=== PATIENT | female | born 1935 | race Caucasian/White ===

== ENCOUNTER 2016-12-04 14:30 | Inpatient (IN) | payer MEDICARE, BC ==
[~2016-12-04] VITALS: Ht 167.6 cm; Wt 106.3 kg
--- NOTE | ~2016-12-04 | CON ---
PATIENT'S NAME: NAT AMEZQUITA [facility] AGE: 80 Y [address] ROOM: [place] [address] LOCATION: GPCU ADMIT DATE: 12/04/2016 Consultation DISCHARGE DATE: FAMILY PHYSICIAN: Lindsay Cali MD ATTENDING PHYSICIAN: TANESHA GARCIA REFERRING PHYSICIAN: Jensen Roth MD REFERRING PHYSICIAN: Tanesha Garcia MD COMMERCIAL DIRECTOR: Dr. Cooley REASON FOR CONSULTATION: Bradycardia. HISTORY OF PRESENT ILLNESS: This is a 80-year-old female, who was admitted for increased weakness. She was found to have profound hypothyroidism, bradycardia, some junctional rhythm, as well as sinus bradycardia. Apparently, she has had an event monitor placed in [place]. PAST MEDICAL HISTORY: 1. Chronic diastolic heart failure. 2. History of colon cancer in 10/2014, post right hemicolectomy with chemotherapy. 3. Anemia. 4. Atrial fibrillation. 5. Hypertension. 6. Chronic kidney disease, stage 3. 7. Intermittent complete heart block per past medical records. 8. Diabetes mellitus, type 2. 9. Gout. 10. Hyperlipidemia. 11. Psoriasis. 12. Arthropathy. 13. Rheumatoid arthritis. 14. Hypothyroidism. 15. Hyperkalemia. PAST SURGICAL HISTORY: 1. Loop recorder placement. 2. Appendectomy. 3. Tonsillectomy. 4. Cholecystectomy. 5. Right hemicolectomy due to colon cancer in 2015. PATIENT'S NAME: NAT AMEZQUITA [facility] AGE: 80 Y [address] ROOM: [place] [address] LOCATION: GPCU ADMIT DATE: 12/04/2016 Consultation DISCHARGE DATE: FAMILY PHYSICIAN: Lindsay Cali MD ATTENDING PHYSICIAN: TANESHA GARCIA 6. Cornea transplant. 7. Bilateral cataract surgery. ALLERGIES: CODEINE, DEMADEX, MEPERIDINE, AND PENICILLIN. CURRENT MEDICATIONS: 1. Allopurinol 300 mg p.o. everyday. 2. Amiodarone 200 mg everyday. 3. Amlodipine 5 mg everyday. 4. Eliquis 2.5 mg b.i.d. 5. Vitamin D3, 5000 units daily. 6. Folic acid 400 mcg daily. 7. Gabapentin 300 mg t.i.d. 8. Glucotrol 10 mg everyday. 9. Hydralazine 25 mg q.i.d. 10. Levemir 20 units subq every night. 11. Levothyroxine 75 mcg daily. 12. Lutein 20 mg daily. 13. Magnesium oxide 400 mg b.i.d. 14. Methotrexate 12.5 mg p.o. everyday. 15. Theravite with beta-carotene one daily. 16. Pravastatin 40 mg one-half tablet every evening. 17. Pred Forte 1% ophthalmic drops q.i.d. 18. Prednisone 1 mg t.i.d. 19. Tramadol 50 mg t.i.d. 20. Vitamin A. 21. PreserVision AREDS one tablet b.i.d. 22. Vitamin B complex one tablet daily. FAMILY HISTORY: Father had heart problems. Sister of cancer in her thirties. Another sister had skin cancer. She has a brother with skin cancer. Another sister with breast cancer in her twenties. REVIEW OF SYSTEMS: HEAD: No history of headaches. EYES: She has impaired vision and wears glasses. EARS: No problems with hearing. NOSE: No epistaxis or rhinorrhea. MOUTH: No gingival bleeding. THROAT: She denies sore throat, hoarseness, or difficulty swallowing. PULMONARY: She denies complaints of shortness of breath. No history of PE. CARDIOVASCULAR: Per HPI. She does carry a history of atrial fibrillation, intermittent complete heart block, and palpitations. PATIENT'S NAME: NAT AMEZQUITA [facility] AGE: 80 Y [address] ROOM: [address] [place] [id number] [facility] ADMIT DATE: 12/04/2016 Consultation DISCHARGE DATE: FAMILY PHYSICIAN: Lindsay Cali MD ATTENDING PHYSICIAN: TANESHA GARCIA GASTROINTESTINAL: Negative for nausea, vomiting, or diarrhea. GENITOURINARY: She has problems with chronic renal insufficiency, and currently has hyperkalemia with history of anemia. MUSCULOSKELETAL: She has rheumatoid arthritis, gout, and spinal stenosis. ENDOCRINE: She has a history of hypothyroidism as well as diabetes mellitus, type 2. PSYCHIATRIC: No dementia was noted. PHYSICAL EXAMINATION: GENERAL: She is alert and oriented. SKIN: Warm, dry, and pink. EYES: Pupils are equal, round, and react briskly. NECK: Soft and supple. No lymphadenopathy. No thyromegaly. JVD is flat. PULMONARY: Lung sounds were clear. CARDIOVASCULAR: Regular, but bradycardic with a normal S1 and S2. ABDOMEN: Soft. Bowel sounds are present. EXTREMITIES: Currently show no peripheral edema. No clubbing and no cyanosis. VITAL SIGNS: Her height is 5 feet 6 inches. She weighs 255 pounds. Blood pressure is 148/89 and heart rate now is 50. LABORATORY DATA: On 12/04/2016, hemoglobin was 10.7 and white count was 8.3. BUN was 87, creatinine was 2.9, and her potassium was 7.1 with a sodium of 123. Today, on 12/05/2016, sodium is 133, potassium is 4.9, BUN is 76, and creatinine is 2.2. Hemoglobin A1c of 8.4. Free T4 of 0.7. Cardiac enzymes were normal. Procalcitonin was 0.41. ASSESSMENT AND PLAN: 1. Bradycardia. Currently, showing a sinus bradycardia. We are going to have her loop recorder interrogated, and further recommendations will be forthcoming regarding pacemaker. 2. Hyperkalemia. Her potassium has come down with Lasix. We will continue to monitor for now. 3. Hypothyroid. She will continue with the Synthroid replacement therapy. 4. Hypertension. Blood pressures look pretty good. We will continue current medications. 5. Dyslipidemia. She is on Pravachol. She will continue with her current dose of meds. 6. Diabetes mellitus. This is per hospitalist. 7. Acute on chronic kidney disease with hyperkalemia. Nephrology is on board. We will continue to monitor. The assessment and plan, history of present illness, and physical exam are per Dr. Roth. We would like to thank Dr. Garcia for allowing us to participate in the patient's care. PATIENT'S NAME: NAT AMEZQUITA [facility] AGE: 80 Y [address] ROOM: [address] [place], [place] [address] LOCATION: GPCU ADMIT DATE: 12/04/2016 Consultation DISCHARGE DATE: FAMILY PHYSICIAN: Lindsay Cali MD ATTENDING PHYSICIAN: TANESHA GARCIA PADDY RUIZ MD TGP/modl /[id number] d: 12/06/16 0142 t: 12/21/16 1159, CONSULTATION REPORT
--- NOTE | ~2016-12-04 | HP ---
PATIENT'S NAME: NAT AMEZQUITA [facility] AGE: 80 Y [address] ROOM: [place] [address] LOCATION: GPCU ADMIT DATE: 12/04/2016 History & Physical DISCHARGE DATE: FAMILY PHYSICIAN: PHYSICIAN, UNKNOWN ATTENDING PHYSICIAN: TANESHA RUDOLPH DATE OF SERVICE: CHIEF COMPLAINT: Not feeling well, weakness in the legs. HISTORY OF PRESENT ILLNESS: A 80-year-old lady with a past medical history of chronic kidney disease stage 3 secondary to insulin-dependent diabetes mellitus, diastolic heart failure, rheumatoid arthritis on chronic prednisone therapy presented to the local emergency department with weakness and tremors in the lower legs which had been there for about 24 to 48 hours, new in onset, progressive in nature. No alleviating or aggravating factors associated with some fatigue and tiredness overall. She did endorse having some shortness of breath, but not more than her usual baseline. Denied any chest pain, any palpitation, any abdominal pain, any constipation, any diarrhea, any burning on urination, or any dizziness. On further inquiry, she did not have these symptoms about 1 week ago. REVIEW OF SYSTEMS: All other systems were reviewed and were negative except what is mentioned in the HPI. PAST MEDICAL HISTORY: 1. Congestive heart failure, diastolic in nature. 2. Essential hypertension. 3. Insulin-dependent diabetes mellitus. 4. History of colon cancer status post resection and chemotherapy in remission. 5. Atrial fibrillation with slow ventricular rate. 6. Hypothyroidism. 7. Anemia of chronic disease. 8. Rheumatoid arthritis. 9. Gout. MEDICATIONS: Being reconciled right now. ALLERGIES: PENICILLIN, CODEINE, TORSEMIDE, AND LATEX. PATIENT'S NAME: NAT AMEZQUITA [facility] AGE: 80 Y [address] ROOM: [place] [address] LOCATION: GPCU ADMIT DATE: 12/04/2016 History & Physical DISCHARGE DATE: FAMILY PHYSICIAN: PHYSICIAN, UNKNOWN ATTENDING PHYSICIAN: TANESHA RUDOLPH SOCIAL HISTORY: Never a smoker. No alcohol or drug abuse. FAMILY HISTORY: Positive for coronary artery disease in older brother and dad. PHYSICAL EXAMINATION: VITAL SIGNS: 148/58, 53, 16, afebrile, saturating 95% on room air. GENERAL: In no acute distress. Alert and oriented x3. HEENT: Head: Atraumatic, normocephalic. Eyes: Nonicteric. No pallor. Oropharynx moist mucous membranes. CARDIOVASCULAR: Irregular variable S1, normal S2. Systolic ejection murmur at the aortic region. LUNGS: Decreased air entry bilaterally at the bases. Mild crepitations heard. ABDOMEN: Soft, nontender, nondistended. Bowel sounds are present. EXTREMITIES: +1 extremity edema. No clubbing, cyanosis. MUSCULOSKELETAL: No muscle tenderness or joint swelling noted. SKIN: Appears to be dry. No blemishes noted. NEUROLOGIC: Cranial nerves II through XII intact. No motor or sensory deficit noted. LYMPHATICS: No lymphangitis or lymphadenopathy noted. PSYCH: Normal affect, mood, and speech. DIAGNOSTIC DATA: Lab work from the outside facility showed sodium of 123, potassium of 7.1, chloride 91, bicarb 24, BUN 87, creatinine 2.9, calcium 9.7, glucose 170. TSH was 40. Serum osmolality 278. Hemoglobin 10, white count 8. BNP 3653. UA was positive with 6 to 10 wbc cast. EKG done at outside facility showed atrial fibrillation with slow ventricular rates in the 50s, possibly right bundle-branch block or aberrant conduction. ASSESSMENT: 1. Severe hyperkalemia. 2. Acute kidney injury on chronic kidney disease stage 3. 3. Acute heart failure with preserved ejection fraction. 4. Atrial fibrillation with slow ventricular response rate. 5. Insulin-dependent diabetes mellitus. 6. Hypothyroidism. 7. Rheumatoid arthritis. 8. Colon cancer. 9. Hyponatremia. 10. Intermittent cardiac block. PATIENT'S NAME: NAT AMEZQUITA [facility] AGE: 80 Y [address] ROOM: [address] [place], [place] [address] [facility] AD[facility] DATE: 12/04/2016 History & Physical DISCHARGE DATE: FAMILY PHYSICIAN: PHYSICIAN, UNKNOWN ATTENDING PHYSICIAN: TANESHA RUDOLPH PLAN: We are going to admit this patient to PCU tele monitor, will be observed. On arrival to the hospital, an EKG was repeated because of the hyperkalemia. Did show again atrial fibrillation with slow ventricular rate and left bundle- branch block which was present on the previous EKG from her [facility] office dated March 2016. The patient was in sinus rhythm at that time. The patient had already been given 10 units of insulin, 2 amps of D50 glucose, 40 mg of IV Lasix. The whole clinical picture appears that she is having ARIANNA secondary to the cardiorenal syndrome. 40 mg of Lasix has been given and we will monitor I and O. At this point, the repeat serum potassium is 5.8 with no EKG changes. Creatinine ranges still at 2.9. At this point, I will obtain a Nephrology consultation to manage the ARIANNA. Its difficult to assess the volume status at this time. We will continue to monitor her heart rate and rhythm. She is wearing a loop monitor and she is supposed to undergo a pacemaker placement by her lan/wan engineer. We will hold Eliquis for now. Put her on DVT doses of heparin. We will use detemir 10 units b.i.d. and a sliding scale insulin. Continue home dose of levothyroxine which have recently started. Continue prednisone. Monitor sodium which appears to be hypervolemic hyponatremia. Further management plan and Cardiology consultation will be made depending on her progress in the hospital. MD BRADY MONTEJO/samuel /[id number] D: [id number] T: [id number] HISTORY & PHYSICAL
--- NOTE | ~2016-12-04 | CON ---
PATIENT'S NAME: NAT AMEZQUITA [facility] AGE: 81 Y [address] ROOM: [address] [address] LOCATION: GPCU ADMIT DATE: 12/04/2016 Consultation DISCHARGE DATE: FAMILY PHYSICIAN: Lindsay Cali MD ATTENDING PHYSICIAN: TANESHA RUDOLPH DATE OF CONSULTATION: 12/04/2016 REFERRING PHYSICIAN: Jensen Roth MD This is a [facility] Nephrology consultation. REASON FOR CONSULTATION: Acute kidney injury, hyperkalemia. HISTORY OF PRESENT ILLNESS: This is a 80-year-old female patient with a longstanding history of hypertension over the past 20 years, diabetes mellitus x10 years, hypothyroidism, atrial fibrillation, history of left bundle branch block, intermittent complete heart block, now with loop recorder, apparently with a history of CKD stage 3, presented to outpatient clinic with profound weakness. The patient was found to have a potassium 7.1. The patient was admitted on 11/21/2015 to [place]. At that time, she was found to have acute kidney injury on chronic kidney disease with creatinine up to 3.6. At that time, the patient's diuretic and ARB were stopped. Today, the patient presents with a creatinine of 2.9 with a potassium of 5.8, after being treated with hyperkalemia protocol including regular insulin, D50, calcium gluconate x2, and Kayexalate. At her last hospitalization, her TSH was found to be over 40. Initial replacement therapy was started at 50 mcg daily. She was recently increased to 75 mcg by her primary care provider. The patient continues to have profound hypothyroidism and at the time of exam shows bradycardia with some junctional rhythm. There is a loop recorder placed and this is being followed by Dr. Cooley in [place]. Due to the patient's history of acute kidney injury on chronic kidney disease stage 3 with creatinine of up to 3.6, Nephrology has been asked to consult on the patient and monitor her kidney function while she is hospitalized. PAST MEDICAL HISTORY: As listed above including, 1. Chronic diastolic heart failure. 2. History of colon cancer in October of 2014, status post right hemicolectomy with chemotherapy. 3. Anemia of chronic disease. 4. Insulin-dependent diabetes. 5. Essential hypertension. 6. Atrial fibrillation, on amiodarone outpatient. 7. Hypothyroidism. 8. Rheumatoid arthritis. 9. High-risk medications in the form of methotrexate. 10. Gout. ALLERGIES: PENICILLIN, CODEINE, TORSEMIDE, AND LATEX.PATIENT'S NAME: NAT AMEZQUITA [facility] AGE: 81 Y [address] ROOM: [place] [address] LOCATION: [facility] ADMIT DATE: 12/04/2016 Consultation DISCHARGE DATE: FAMILY PHYSICIAN: Lindsay Cali MD ATTENDING PHYSICIAN: TANESHA RUDOLPH CURRENT HOME MEDICATIONS: Include, 1. Allopurinol 300 mg daily. 2. Amiodarone 200 mg daily. 3. Amlodipine 5 mg daily. 4. Eliquis 2.5 mg twice a day. 5. Vitamin D3 5000 units daily. 6. Folic acid 400 mcg daily. 7. Gabapentin 300 mg t.i.d. 8. Glucotrol 10 mg daily. 9. Hydralazine 25 mg 4 times a day. 10. Levemir 20 units daily. 11. Levothyroxine 25 mcg daily. 12. Lutein 20 mg daily. 13. Magnesium oxide 400 mg twice a day. 14. Methotrexate 12.5 mg twice a day. 15. Theravite with wide beta-carotene one tablet daily. 16. Pravastatin 40 mg 1/2 tablet every evening. 17. Pred Forte 1% ophthalmic drops four times a day. 18. Prednisone 1 mg t.i.d. 19. Tramadol 50 mg t.i.d. 20. Vitamin A 1 tablet daily. 21. PreserVision AREDS one tablet twice a day. 22. Vitamin B complex one tablet daily. PAST SURGICAL HISTORY: 1. As listed above loop recorder placement. 2. Appendectomy. 3. Tonsillectomy. 4. Cholecystectomy. 5. Right hemicolectomy due to colon cancer 2016. 6. Cornea transplant. 7. Bilateral cataract surgery. FAMILY HISTORY: Reviewed and is noncontributory. There is no history of renal disease or dialysis. The patient's father did have a history of coronary artery disease and her sister had a history of cancer. She did also have a brother and another sister with cancer. PATIENT'S NAME: NAT AMEZQUITA [facility] AGE: 81 Y [address] ROOM: [address] [place], [place] [address] LOCATION: GPCU ADMIT DATE: 12/04/2016 Consultation DISCHARGE DATE: FAMILY PHYSICIAN: Lindsay Cali MD ATTENDING PHYSICIAN: TANESHA RUDOLPH REVIEW OF SYSTEMS: GENERAL: Positive for fatigue. EYES: No double vision blurred vision. NOSE: No epistaxis or rhinorrhea. MOUTH: No gingival bleeding. THROAT: No sore throat, hoarseness, or cough. RESPIRATORY: Denies wheezing or hemoptysis. CARDIOVASCULAR: Denies any chest pain or palpitations. See HPI. GASTROINTESTINAL: Positive for nausea. Denies any vomiting. Denies any diarrhea. GENITOURINARY: Denies any frequency, hesitancy, or urgency. MUSCULOSKELETAL: Denies any new arthralgias or myalgias. ENDOCRINE: She does have a history of hypothyroidism as well as diabetes type 2, on insulin. PSYCHIATRIC: Denies any depression or anxiety. HEMATOLOGICAL: Denies any bruising or easy bleeding. LABORATORY DATA: Hemoglobin 10.7, WBCs 8.3, BUN 87, creatinine 2.9, potassium 7.1, sodium 123. These labs were obtained prior to arrival. Today's labs are currently pending. PHYSICAL EXAM: VITAL SIGNS: Blood pressure is 148/89, heart rate 47, respirations 14, temp is 98.7, and saturations are 92% on 2 L nasal cannula. GENERAL: On exam, this is an alert and oriented, white elderly female who appears her approximate stated age. HEENT: Her head is normocephalic and atraumatic. Eyes, pupils are equal and accommodation. EOMs intact. Nose midline. Mouth, no gingival bleeding. NECK: Soft and supple. Throat is without lymphadenopathy, carotid bruits, or JVD. LUNGS: Lung sounds are clear to auscultation anteriorly and posteriorly. CARDIOVASCULAR: Bradycardic rate with an apical heart rate of 43 beats per minute. Unable to appreciate any murmurs, rubs, or thrills. ABDOMEN: Soft, nontender, and nondistended. Bowel sounds positive. EXTREMITIES: No signs of peripheral edema, clubbing, or cyanosis. ASSESSMENT AND PLAN: 1. Acute kidney injury on chronic kidney disease stage 3. The patient's apparent chronic kidney disease was a combination of hypertension and chemotherapy as well as diabetes. Acute kidney injury likely secondary to acute tubular necrosis a couple of weeks ago. Creatinine was up to 3.6 and now is 2.9. The patient does not appear volume overloaded or depleted. We will hold her diuretic for now and continue to withhold all offending nephrotoxic agents. We will check a urinalysis for electrolytes and a renal ultrasound to further rule out obstruction.PATIENT'S NAME: NAT AMEZQUITA [facility] AGE: 81 Y [address] ROOM: [address] [place], [place] [address] LOCATION: GPCU ADMIT DATE: 12/04/2016 Consultation DISCHARGE DATE: FAMILY PHYSICIAN: Lindsay Cali MD ATTENDING PHYSICIAN: TANESHA RUDOLPH 2. Hyperkalemia. We will initiate Veltassa therapy at 16.8 g p.o. daily. The patient did receive hyperkalemia protocol prior to her arrival. We will continue to monitor this and if her potassium persists greater than 5.5, we will repeat Kayexalate, insulin, dextrose and calcium gluconate. 3. Bradycardia, Dr. Roth has been consulted. Further recommendations per Dr. Roth. 4. Hypothyroidism. The patient is to continue her replacement therapy at this time. Further per primary team. This patient has been seen and assessed by Dr. Chapman. Her care is being conducted in consultation Dr. Chapman as well as me. We will plan further recommendations as they are forthcoming. PHILIP CLEMENTE DNP, [facility] [facility] RUBEN CHAPMAN MD ENS/modl /[id number] d: 12/06/16 1531 t: 12/16/16 0931, CONSULTATION REPORT
--- NOTE | ~2016-12-04 | DS ---
PATIENT'S NAME: NAT AMEZQUITA [facility] AGE: 81 Y [address] ROOM: [address] [address] LOCATION: GPCU ADMIT DATE: 12/04/2016 Discharge Summary DISCHARGE DATE: 12/07/2016 FAMILY PHYSICIAN: Lindsay Cali MD ATTENDING PHYSICIAN: Alexia Garcia FINAL DIAGNOSES: 1. Severe hyperkalemia. 2. Acute kidney injury on stage 3 chronic kidney disease. 3. Acute diastolic congestive heart failure. 4. Atrial fibrillation with slow ventricular response. 5. Insulin-dependent diabetes mellitus. 6. Hypothyroidism. HISTORY OF PRESENT ILLNESS: Please see the history and physical dictated by Dr. Garcia for details of admission. In short, the patient with histories of chronic kidney disease, insulin- dependent diabetes mellitus, and diastolic heart failure, had presented to her local Emergency Room because she was having tremors in her legs and had felt weak. She also has overwhelming fatigue, as well as shortness of breath. When she presented there, she was found to have a potassium value of 7.1, BUN of 87, and creatinine of 0.29. She has been just discharged from the [facility] for a similar presentation. LABORATORY DATA: On admission, sodium was 131 and on discharge was 135. Potassium on admission was 7.1, by the time she got here it was down to 5.8, later on the admission day was up to 6.5, and then gradually came down and on the day of discharge it was 4.4. BUN on admission was 85 and at discharge was 42. Creatinine on admission was 2.9 and at discharge was 1.6. Hemoglobin A1c was 8.4. Free T4 of 0.7. Her white blood cell count on admission was 7 with a hemoglobin of 10, hematocrit of 30.1, platelet count of 198, and MCV of 104.2. Procalcitonin on admission was 0.41. Urinalysis on admission had 20 to 50 whites and had many bacteria. Urine culture was obtained, which did grow E. coli. The patient was asymptomatic. DIAGNOSTIC STUDIES: An ultrasound of the kidney done on admission to rule out an obstruction showed that the right kidney was 10.2 cm and left kidney was 11.1 cm. She did have a 5 cm right kidney cyst. HOSPITAL COURSE: The patient was admitted to the Progressive Care Unit and placed on Telemetry. She was given one dose of Rocephin for concern of potential infection. Urine electrolytes were obtained, as well as osmolality. Nephrology was consulted. The patient was seen and given a dose of calcium gluconate. The patient was noted to be bradycardic, and Cardiology was asked PATIENT'S NAME: NAT AMEZQUITA [facility] AGE: 81 Y [address] ROOM: [place] [address] LOCATION: GPCU ADMIT DATE: 12/04/2016 Discharge Summary DISCHARGE DATE: 12/07/2016 FAMILY PHYSICIAN: Lindsay Cali MD ATTENDING PHYSICIAN: Alexia Garcia to see. Nephrology did feel that the patient should be started on Veltassa. Her Neurontin was held during the hospital stay because of the acute renal insufficiency. Dr. Roth did see her in Cardiology consultation. There was concern that she may need a pacemaker placement. She did have an implanted loop recorder, this was interrogated. Her potassiums did continue to decline. She was given IV fluid with Lasix. Her echocardiogram was reviewed. As the potassium returned to normal level, her heart rate improved. Her TSH at an outside facility was elevated. Her free T4 was at the low end of normal here, so her Synthroid dose was increased. She did continue to feel better. PT and OT were asked to see her. Her blood pressures were elevated, so Norvasc was increased. I did contact her primary avionics repair technician's office to determine kidney function levels, potassium levels, and what medication adjustments had been made as an outpatient. Her urine culture did return positive; however, she did not have any symptomatology, so it was felt that it did not need to be addressed. Nephrology did make multiple adjustments in her blood pressure medicines. DISCHARGE MEDICATIONS: 1. Allopurinol 300 mg daily. 2. Norvasc 5 mg twice daily. 3. Amiodarone 200 mg daily. 4. Vitamin D 5000 units daily. 5. Lutein 20 mg daily. 6. Folic acid 400 mcg daily. 7. Levemir 20 units at bedtime. 8. Magnesium oxide 400 mg once daily, which was a decrease. 9. Synthroid 100 mcg daily, this was an increase. 10. Pravachol 20 mg at bedtime. 11. Pred-Forte one drop 4 times daily to left eye. 12. Deltasone 1 mg three times daily. 13. Ultram 50 mg three times daily. 14. Eliquis 2.5 mg twice daily. 15. Neurontin 300 mg three times daily. 16. Glucotrol 10 mg daily. 17. Methotrexate 12.5 mg every seven days, which is due on Sunday. 18. PreserVision one tablet daily. 19. B complex vitamin daily. 20. Hydralazine 25 mg three times daily. 21. Veltassa 8.4 g two packets daily. 22. Chlorthalidone 25 mg daily. DISCHARGE INSTRUCTIONS AND PLAN: It was recommended that she follow up to get her laboratory drawn in 1 week. She did voice that she might like to have it checked sooner, so I told her to call Dr. Cali's office to see if they could be checked on Sunday. PATIENT'S NAME: NAT AMEZQUITA [facility] AGE: 81 Y [address] ROOM: [place] [address] [facility] ADMIT DATE: 12/04/2016 Discharge Summary DISCHARGE DATE: 12/07/2016 FAMILY PHYSICIAN: Lindsay Cali MD ATTENDING PHYSICIAN: Alexia Garcia OVERALL PROGNOSIS AT DISCHARGE: Fair. LISHA STRAUSS MD LAW/modl /[id number] CC: MD Lindsay Rader MD Ramez Habash, MD d: 12/07/16 2240 t: 12/13/16 1115, DISCHARGE SUMMARY
[2016-12-04] MEDS ORDERED: CORDARONE,PACE200 MG PO (15:59)
[2016-12-04] MEDS ORDERED: ZYLOPRIM300 MG PO (15:59)
[2016-12-04] MEDS ORDERED: NORVASC5 MG PO (16:00)
[2016-12-04] MEDS ORDERED: FOLIC ACID 40400 MCG PO (16:01)
[2016-12-04] MEDS ORDERED: ELIQUIS2.5 MG PO (16:01)
[2016-12-04] MEDS ORDERED: GLUCOTROL10 MG PO (16:02)
[2016-12-04] MEDS ORDERED: NEURONTIN300 MG PO (16:02)
[2016-12-04] MEDS ORDERED: APRESOLINE50 MG PO (16:06)
[2016-12-04] MEDS ORDERED: LEVEMIR100 UNIT/1 SUB-Q (16:06)
[2016-12-04] MEDS ORDERED: MAG-OX-400(241400 MG PO (16:11)
[2016-12-04] MEDS ORDERED: NATURAL LUTEIN20 MG PO (16:11)
[2016-12-04] MEDS ORDERED: THERA-VITE W/ B1 TAB PO (16:13)
[2016-12-04] MEDS ORDERED: METHOTREXATE2.5 MG PO (16:13)
[2016-12-04] MEDS ORDERED: PRAVACHOL40 MG PO (16:14)
[2016-12-04] MEDS ORDERED: DELTASONE1 MG PO (16:15)
[2016-12-04] MEDS ORDERED: PRED FORTE 1%5 ML OPHTH (16:15)
[2016-12-04] MEDS ORDERED: PRESERVISION A1 EAC1 PO (16:16)
[2016-12-04] MEDS ORDERED: SUPER B COMPLE150 MG PO (16:17)
[2016-12-04] MEDS ORDERED: LEVOTHROID (S100 MCG PO (16:18)
[2016-12-04] MEDS ORDERED: VITAMIN D35000 UNI1 PO (16:19)
[2016-12-04] MEDS ORDERED: ULTRAM50 MG PO (16:19)
--- NOTE | 2016-12-04 16:21 | NUR ---
Pt is 80 y/o female admit for acute kidney injury for hospitalist. Has many allergies-see chart. Resides at home with her . Pt came via flight from [facility]. Hx CHF,htn,afib,colon CA,hyperlipids,RA,gout,cornea trans, psoriasis,spinal stenosis,hypothyroid,renal insuff,hx anemia. Pt alert and oriented x3. Pt has a loop recorder and was scheduled to have a pacemaker next week with [place]. Yesterday her legs felt like rubber and she had some body twitching. She overall didn't feel good. Her took her to the
[2016-12-04 16:26] LABS: BASOPHIL % 0.3 %; EOSINOPHIL % 0.4 %; HEMATOCRIT 30.1 % (33.0-46.0); IMMATURE GRANULOCYTE % 0.4 %; LYMPHOCYTE % 14.1 %; MCH 34.6 pg (27.0-34.0); MCHC 33.2 gm/dL (32.0-36.5); MCV 104.2 fl (83.0-98.0); MONOCYTE # 0.3 K/uL (0.0-1.0); MONOCYTE % 4.1 %; MPV 10.6 fl (9.4-12.4); NEUTROPHIL # (ANC) 5.7 K/uL (1.8-7.8); NEUTROPHIL % 80.7 %; NRBC % 0 /100WBC (0-0.00); PLATELET COUNT 198 K/uL (150-450); RBC 2.89 M/uL (3.50-5.50); RDW-CV 15.1 % (11.9-14.6)
[2016-12-04 16:38] LABS: CALCIUM 9.7 mg/dL (8.5-10.5); CREATININE 2.9 mg/dL (0.5-1.1)
[2016-12-04 16:39] LABS: ANION GAP 14.8 (10.0-19.0); POTASSIUM 5.8 mMol/L (3.7-5.1)
[2016-12-04 19:08] LABS: BASOPHIL % 0.3 %; EOSINOPHIL # 0.1 K/uL (0.0-0.5); EOSINOPHIL % 0.6 %; HEMATOCRIT 30.6 % (33.0-46.0); HEMOGLOBIN 10.1 g/dL (10.0-15.0); IMMATURE GRANULOCYTE % 0.4 %; LYMPHOCYTE # 0.9 K/uL (0.8-4.0); LYMPHOCYTE % 9.6 %; MCH 34.6 pg (27.0-34.0); MCV 104.8 fl (83.0-98.0); MONOCYTE # 1.1 K/uL (0.0-1.0); MPV 10.3 fl (9.4-12.4); NEUTROPHIL # (ANC) 7.3 K/uL (1.8-7.8); NEUTROPHIL % 77.1 %; NRBC % 0 /100WBC (0-0.00); PLATELET COUNT 216 K/uL (150-450); RBC 2.92 M/uL (3.50-5.50); RDW-CV 15.1 % (11.9-14.6); WBC 9.4 K/uL (4.0-11.0)
[2016-12-04 19:21] LABS: CALCIUM 9.2 mg/dL (8.5-10.5); CREATININE 2.8 mg/dL (0.5-1.1)
[2016-12-04 21:34] LABS: BILIRUBIN URINE NEGATIVE (NEGATIVE); BLOOD URINE 25 /UL (NEGATIVE); COLOR URINE YELLOW (YELLOW); GLUCOSE URINE NEGATIVE (NEGATIVE); KETONE URINE NEGATIVE (NEGATIVE); LEUKOCYTES URINE 500 /UL (NEGATIVE); NITRITE URINE NEGATIVE (NEGATIVE); PROTEIN URINE NEGATIVE (NEGATIVE); TURBIDITY URINE CLEAR (CLEAR); UROBILINOGEN URINE NORMAL (NORMAL)
[2016-12-04 21:44] LABS: BACTERIA URINE MANY (NEGATIVE); WBC URINE 20-50 #/HPF (NEGATIVE)
[2016-12-04 21:45] LABS: WBC CLUMPS URINE FEW (NEGATIVE)
[2016-12-04 23:23] LABS: CALCIUM 8.9 mg/dL (8.5-10.5); CREATININE 2.7 mg/dL (0.5-1.1)
[2016-12-04 23:27] LABS: ANION GAP 15.5 (10.0-19.0); POTASSIUM 6.5 mMol/L (3.7-5.1)
--- NOTE | 2016-12-05 04:06 | NUR ---
Significant Event: A/0X3. RESTED IN BED ALL OF SHIFT. TURNS SELF. 1 ASSIST TO BEDSIDE COMMODE. AFEBRILE. HR LOW 40'S- 50'S. VSS ON 2L. DENIES PAIN. L) CHEST PORT SL. FLUSHES WITH GOOD BLOOD RETURN. K LEVEL WAS 5.8 AT BEGINNING OF SHIFT. GAVE 2 GRAMS OF CALCIUM GLUCONATE X1 AND VELTASSA.RECHECK AT 2300 K LEVEL WAS 6.5 GAVE KAYEXELATE X1 1 GRAM OF CALCIUM GLUCONATE X1 10 UNITS OF REGULAR INSULIN IV AND 1 AMPULE OF D50. WAITING ON RESULTS OF THE RECHECK. BEEN NPO SINCE MIDNIGHT FOR POSSIBLE PACER THIS AM. MONSE PRESENT WITH 1600 MLS OUT. SMALL BM THIS SHIFT. RENAL ULTRASOUND THIS AM. Follow up: CONTINUE WITH PLAN OF CARE.
[2016-12-05 04:22] LABS: CALCIUM 9.2 mg/dL (8.5-10.5); CREATININE 2.5 mg/dL (0.5-1.1)
[2016-12-05 04:25] LABS: ANION GAP 14.5 (10.0-19.0); POTASSIUM 5.5 mMol/L (3.7-5.1)
[2016-12-05 04:38] LABS: BASOPHIL % 0.2 %; EOSINOPHIL # 0.1 K/uL (0.0-0.5); EOSINOPHIL % 1.9 %; HEMATOCRIT 26.6 % (33.0-46.0); HEMOGLOBIN 8.9 g/dL (10.0-15.0); IMMATURE GRANULOCYTE % 0.3 %; LYMPHOCYTE # 1.3 K/uL (0.8-4.0); LYMPHOCYTE % 21.7 %; MCH 34.8 pg (27.0-34.0); MCHC 33.5 gm/dL (32.0-36.5); MCV 103.9 fl (83.0-98.0); MONOCYTE # 0.6 K/uL (0.0-1.0); MONOCYTE % 10.3 %; NEUTROPHIL # (ANC) 3.9 K/uL (1.8-7.8); NEUTROPHIL % 65.6 %; NRBC % 0 /100WBC (0-0.00); PLATELET COUNT 180 K/uL (150-450); RBC 2.56 M/uL (3.50-5.50); RDW-CV 15.1 % (11.9-14.6); WBC 5.9 K/uL (4.0-11.0)
[2016-12-05 09:47] LABS: CALCIUM 9.4 mg/dL (8.5-10.5); CREATININE 2.2 mg/dL (0.5-1.1)
[2016-12-05 09:48] LABS: ANION GAP 13.9 (10.0-19.0); POTASSIUM 4.9 mEq/L (3.7-5.1)
[2016-12-06 03:46] LABS: POTASSIUM 4.6 mEq/L (3.7-5.1)
[2016-12-06 04:25] LABS: ALBUMIN 3.1 gm/dL (3.5-5.0); ANION GAP 16.6 (10.0-19.0); CALCIUM 9.6 mg/dL (8.5-10.5); CREATININE 1.9 mg/dL (0.5-1.1); PHOSPHORUS 3.9 mg/dL (2.5-4.9)
--- NOTE | 2016-12-06 04:50 | NUR ---
Significant Event: A/0X3. RESTED IN BED ALL OF SHIFT. TURNS SELF. AFEBRILE. VSS ON RA. L) CHEST PORT WITH NS @ 60 MLS/H. ULTRAM GIVEN X1. LAST DOSE WAS AT 2017 FOR LEG PAIN. PATIENT WAS ABLE TO FIND RELIEF AND REST COMFORTABLY WITH NO C/O OF PAIN THE REST OF THE NIGHT. SHEA HAD 1750 MLS OUT. NO BM THIS SHIFT. Follow up: CONTINUE WITH PLAN OF CARE.
--- NOTE | 2016-12-06 11:08 | NUR ---
Introduced self and care management services to patient and spouse at bedside. Lives in [place]. Plans on going home on discharge, hoping to go home soon. Denies concerns about going home, denies needs, spouse will assist pt at home as needed. Will follow.
--- NOTE | 2016-12-06 17:20 | NUR ---
Significant Event: A/O. SBPs 150s-180s. Pain to aura knees and feet, ultram given with relief noted. Flores dc'd at 1500, has voided 100 ml. Urine cx + ecoli, patient asymptomatic so no ABX ordered. Cdiff sample sent. Up with SBA and walker to BR. AC/HS accuchecks. Fluid restriction of 1200ml. Follow up:
--- NOTE | 2016-12-07 04:38 | NUR ---
A/O. HR 60-80s. SBP 120-200s HYDRALIZE AND LABATOLOL PO STARTED. ROOM AIR. AFEBRILE. VOIDS WELL. 1A WALKER TO BATHROOM. ULTRAMx1.
[2016-12-07 06:20] LABS: BASOPHIL % 0.4 %; EOSINOPHIL # 0.2 K/uL (0.0-0.5); EOSINOPHIL % 2.1 %; HEMATOCRIT 30.6 % (33.0-46.0); IMMATURE GRANULOCYTE % 0.6 %; LYMPHOCYTE # 1.2 K/uL (0.8-4.0); LYMPHOCYTE % 17.1 %; MCH 33.9 pg (27.0-34.0); MCHC 32.7 gm/dL (32.0-36.5); MCV 103.7 fl (83.0-98.0); MONOCYTE # 0.4 K/uL (0.0-1.0); MONOCYTE % 6.1 %; MPV 10.1 fl (9.4-12.4); NEUTROPHIL # (ANC) 5.2 K/uL (1.8-7.8); NEUTROPHIL % 73.7 %; NRBC % 0 /100WBC (0-0.00); RBC 2.95 M/uL (3.50-5.50); RDW-CV 15.3 % (11.9-14.6); WBC 7.1 K/uL (4.0-11.0)
[2016-12-07 06:26] LABS: PLATELET COUNT 230 K/uL (150-450)
[2016-12-07 06:39] LABS: ALBUMIN 3.5 gm/dL (3.5-5.0); ANION GAP 12.4 (10.0-19.0); CALCIUM 9.4 mg/dL (8.5-10.5); CREATININE 1.6 mg/dL (0.5-1.1); MAGNESIUM 2.2 mg/dL (1.8-2.6); PHOSPHORUS 3.5 mg/dL (2.5-4.9); POTASSIUM 4.4 mEq/L (3.7-5.1)
[2016-12-07] MEDS ORDERED: APRESOLINE25 MG PO (13:45)
[2016-12-07] MEDS ORDERED: VELTASSA16.8 GM PO (13:47)
[2016-12-07] MEDS ORDERED: CHLORTHALIDONE25 MG PO (16:09)
--- NOTE | 2016-12-07 17:51 | NUR ---
PT. DISCHARGE INSTRUCTIONS GIVEN AND VERBALIZED UNDERSTANDING OF BY PT AND . CALLED THEIR PHARMACY TO VERIFY SOME NEW MED AVAILABILITIES. CHEST PORT DEACCESSED. DISCHARGED PER WHEELCHAIR BY AIDE TO FRONT DOOR WITH .
== END 2016-12-07 16:57 | disposition disaster alternative care site (69) | DRG 682 ==
LOC: GPCU 15:49
PROVIDERS: Internal Medicine; Nurse Practitioner; Physician Assistant; ADMIT Internal Medicine
DX: N17.9 Acute kidney failure, unspecified (principal); I50.33 Acute on chronic diastolic (congestive) heart failure; E11.22 Type 2 diabetes mellitus with diabetic chronic kidney disease; E11.649 Type 2 diabetes mellitus with hypoglycemia without coma; E87.1 Hypo-osmolality and hyponatremia; I13.0 Hypertensive heart and chronic kidney disease with heart failure and stage 1 through stage 4 chronic kidney disease, or unspecified chronic kidney disease; Z68.41 Body mass index [BMI] 40.0-44.9, adult; D63.8 Anemia in other chronic diseases classified elsewhere; E03.9 Hypothyroidism, unspecified; E66.01 Morbid (severe) obesity due to excess calories; I45.9 Conduction disorder, unspecified; M06.9 Rheumatoid arthritis, unspecified; I48.91 Unspecified atrial fibrillation; M10.9 Gout, unspecified; N18.3 Chronic kidney disease, stage 3 (moderate); E87.5 Hyperkalemia
CPT/HCPCS: J0610; J1644; J1940; J2405; J7030; J7040; J7050

== ENCOUNTER → 2016-12-04 | Outpatient (CLI) | payer MEDICARE, BC ==
[~2016-12-04] MED LIST: APRESOLINE25 MG PO; APRESOLINE50 MG PO; CHLORTHALIDONE25 MG PO; CORDARONE,PACE200 MG PO; DELTASONE1 MG PO; ELIQUIS2.5 MG PO; FOLIC ACID 40400 MCG PO; GLUCOTROL10 MG PO; LEVEMIR100 UNIT/1 SUB-Q; LEVOTHROID (S100 MCG PO; MAG-OX-400(241400 MG PO; METHOTREXATE2.5 MG PO; NATURAL LUTEIN20 MG PO; NEURONTIN300 MG PO; NORVASC5 MG PO; PRAVACHOL40 MG PO; PRED FORTE 1%5 ML OPHTH; PRESERVISION A1 EAC1 PO; SUPER B COMPLE150 MG PO; THERA-VITE W/ B1 TAB PO; ULTRAM50 MG PO; VELTASSA16.8 GM PO; VITAMIN D35000 UNI1 PO; ZYLOPRIM300 MG PO
== END | disposition disaster alternative care site (69) ==
LOC: GAIR 15:09
DX: E87.5 Hyperkalemia (principal); D64.9 Anemia, unspecified; I50.32 Chronic diastolic (congestive) heart failure; I48.2 Chronic atrial fibrillation; I10 Essential (primary) hypertension; E11.9 Type 2 diabetes mellitus without complications; E78.5 Hyperlipidemia, unspecified; E03.9 Hypothyroidism, unspecified; I45.9 Conduction disorder, unspecified; N28.9 Disorder of kidney and ureter, unspecified; R11.0 Nausea; R53.1 Weakness; R06.02 Shortness of breath; Z88.5 Allergy status to narcotic agent; Z88.0 Allergy status to penicillin; Z79.52 Long term (current) use of systemic steroids; Z79.899 Other long term (current) drug therapy; Z85.038 Personal history of other malignant neoplasm of large intestine; Z91.040 Latex allergy status
CPT/HCPCS: A0422; A0431; A0436